=== PATIENT | male | born 1950 | race African-American/Black ===

== ENCOUNTER 2016-03-30 08:21 | Emergency (ER) | payer MEDICARE, OTHER ==
[2016-03-30 08:58] LABS: ABSOLUTE EOSINOPHILS # (AUTO) 0.2 10^3/uL (0.0-0.6); ABSOLUTE LYMPHOCYTES (AUTO) 1.8 10^3/uL (0.5-4.7); ABSOLUTE MONOCYTES (AUTO) 0.6 10^3/uL (0.1-1.4); ABSOLUTE NEUT (AUTO) 3.6 10^3/uL (1.7-8.2); BASOPHILS % (AUTO) 0.6 % (0-2); HEMOGLOBIN 13.9 g/dL (13.5-17.0); HGB HCT DIFFERENCE -1.3; LYMPHOCYTES % (AUTO) 28.4 % (13-45); MEAN CORPUSCULAR HEMOGLOBIN 26.1 pg (27.0-33.4); MEAN CORPUSCULAR HGB CONC 32.3 g/dL (32.0-36.0); MEAN CORPUSCULAR VOLUME 81 fl (80-97); MONOCYTES % (AUTO) 10.1 % (3-13); RED BLOOD COUNT 5.33 10^6/uL (4.35-5.55); RED CELL DISTRIBUTION WIDTH 14.7 % (11.5-14.0); SEGMENTED NEUTROPHILS % (AUTO) 57.9 % (42-78); WHITE BLOOD COUNT 6.2 10^3/uL (4.0-10.5)
[2016-03-30 09:15] LABS: ALANINE AMINOTRANSFERASE 25 U/L (21-72); ALBUMIN 3.6 g/dL (3.5-5.0); ALKALINE PHOSPHATASE 84 U/L (38-126); ANION GAP 11 (5-19); ASPARTATE AMINO TRANSFERASE 20 U/L (17-59); BILIRUBIN,TOTAL 0.8 mg/dL (0.2-1.3); BLOOD UREA NITROGEN 11 mg/dL (7-20); CALCIUM 9.2 mg/dL (8.4-10.2); CARBON DIOXIDE 24 mmol/L (22-30); CHLORIDE 109 mmol/L (98-107); CREATINE KINASE 184 U/L (55-170); GLUCOSE 106 mg/dL (75-110); MAGNESIUM 1.9 mg/dL (1.6-2.3); POTASSIUM 4.3 mmol/L (3.6-5.0); SODIUM 143.5 mmol/L (137-145); TOTAL PROTEIN 6.6 g/dL (6.3-8.2)
[2016-03-30] MEDS ORDERED: PREDNISONE 20 MG TABLET PO ONE (09:18)
--- NOTE | 2016-03-30 09:18 | ER Document Report ---
ED General - General Mode of Arrival: Medic Information source: Patient, Relative - HPI Patient complains to provider of: dizziness Onset: This morning Associated symptoms: Other - See above <GENARO WHEELER - Last Filed: 03/30/16 09:25> <BENJY GAN - Last Filed: 03/30/16 11:02> - General Chief Complaint: Dizziness Stated Complaint: DIZZINESS Notes: Patient is a 65 year old male, with a past medical history including hypercholesterolemia and multiple CVAs, who presents to the emergency department with his complaining of dizziness. Per , patient has always become dizzy and starts grunting, like he did this morning, before he has a stroke and has never been dizzy without a stroke following. Patient reports he has had 8 strokes in the past, the most recent was 4-5 months ago and was treated in [place]. 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 According to the source of the clots has not been found. Patient reports he has only experienced left sided weakness after the strokes, he has been to stroke rehab and told to walk with a cane. Patient denies any new speech or motor deficits or weakness. Patient reports he has a history of gout and complains of left foot pain. (GENARO WHEELER) - Related Data Home Medications: Current Home Medications Atorvastatin Calcium 1 tab PO DAILY 03/30/16 [History] Atorvastatin Calcium [Lipitor 10 mg Tablet] 1 tab PO DAILY 03/30/16 [History] Clopidogrel Bisulfate [Clopidogrel] 1 tab PO DAILY 03/30/16 [History] Donepezil HCl 1 tab PO DAILY 03/30/16 [History] Past Medical History - General Information source: Patient, Relative - Social History Smoking Status: Former Smoker - 20 years Family History: Reviewed & Not Pertinent - Past Medical History Cardiac Medical History: Reports: Hx Hypercholesterolemia Neurological Medical History: Reports: Hx Cerebrovascular Accident Musculoskeltal Medical History: Reports Hx Gout Traumatic Medical History: Reports: Other - 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 <GENARO WHEELER - Last Filed: 03/30/16 09:25> Review of Systems - Review of Systems Constitutional: denies: Weakness EENT: No symptoms reported Cardiovascular: See HPI, Dizziness Respiratory: No symptoms reported Gastrointestinal: No symptoms reported Genitourinary: No symptoms reported Male Genitourinary: No symptoms reported Musculoskeletal: See HPI, Gout Skin: No symptoms reported Hematologic/Lymphatic: No symptoms reported Neurological/Psychological: denies: Speech impairment -: Yes All other systems reviewed and negative <GENARO WHEELER - Last Filed: 03/30/16 09:25> Physical Exam - Vital signs Interpretation: Normal - General General appearance: Appears well, Alert - HEENT Head: Other - Missing left eye from past trauma - Respiratory Respiratory status: No respiratory distress - Cardiovascular Rhythm: Regular Heart sounds: Normal auscultation Murmur: No - Abdominal Inspection: Normal Distension: No distension Bowel sounds: Normal Tenderness: Nontender Organomegaly: No organomegaly - Extremities General upper extremity: Normal inspection Foot: Tender - Tenderness to palpation of 1st left MTP joint - Neurological Neuro grossly intact: Yes Cognition: Normal Orientation: AAOx4 Bettina Coma Scale Eye Opening: Spontaneous Bettina Coma Scale Verbal: Oriented Nikolski Coma Scale Motor: Obeys Commands Nikolski Coma Scale Total: 15 Speech: Normal Cranial nerves: Normal - Psychological Associated symptoms: Normal affect, Normal mood - Skin Skin Temperature: Warm Skin Moisture: Dry Skin Color: Normal <GENARO WHEELER - Last Filed: 03/30/16 09:25> Course - Laboratory Result Diagrams: 03/30/16 08:30 03/30/16 08:30 <GENARO WHEELER - Last Filed: 03/30/16 09:25> - Laboratory Result Diagrams: 03/30/16 08:30 03/30/16 08:30 - Diagnostic Test Radiology reviewed: Image reviewed, Reports reviewed - CT of the head shows old occipital infarcts with chronic atrophy and microvascular ischemia. There are no acute changes. Chest x-ray is unremarkable. - EKG Interpretation by Me EKG shows normal: Sinus rhythm, Sidney, Intervals, QRS Complexes. abnormal: ST-T Waves - Borderline inferior T abnormalities Rate: Normal - 58 Rhythm: NSR When compared to previous EKG there are: Previous EKG unavailable <BENJY GAN - Last Filed: 03/30/16 11:02> - Re-evaluation Re-evalutation: 03/30/16 10:58 This 65-year-old male patient brought to emergency room by his spouse with symptoms of grunting and eyes rolling back with dizziness. She reports she has had 8 strokes in the past and they always start like this. She further stated she he never has these symptoms when he doesn't have a stroke. At this time the patient is completely alert oriented and neurologically asymptomatic. His only complaint is pain in the left first toe and he does have a history of gout. He takes Plavix on a daily basis to prevent strokes. He had left-sided deficits in the past but they have pretty much cleared up. He is not a TPA candidate, as his symptoms have completely cleared, and he takes Plavix on a daily basis. 03/30/16 11:01 The spouse reports when they lived in [place] a few years ago they got the care from [facility], and plan to reestablish with the [place] office of [facility]. (BENJY GAN) - Vital Signs Vital signs: Temp Pulse Resp BP Pulse Ox 97.6 F 59 L 26 H 122/63 97 03/30/16 08:35 03/30/16 08:35 03/30/16 08:35 03/30/16 08:35 03/30/16 08:35 (GENARO WHEELER) (BENJY GAN) - Laboratory Laboratory results interpreted by nh: 03/30/16 03/30/16 08:30 08:30 MCH 26.1 L RDW 14.7 H Chloride 109 H Creatine Kinase 184 H (GENARO WHEELER) (BENJY GAN) Discharge <GENARO WHEELER - Last Filed: 03/30/16 09:25> <BENJY GAN - Last Filed: 03/30/16 11:02> - Discharge Clinical Impression: TIA on medication Gout attack Qualifiers: Gout site: toe Gout etiology: unspecified cause Laterality: left Qualified Code (s): M10.9 - Gout, unspecified Condition: Stable Disposition: HOME, SELF-CARE Additional Instructions: Your pre-stroke like symptoms earlier today may have been a transient ischemic attack. You are already on maximal medical therapy with the Plavix. Your left first toe pain and swelling is due to gout. Start the prednisone as prescribed tomorrow. Elevate the foot and limit walking as much as possible. Follow-up with [facility] to establish as a new patient. RETURN TO THE EMERGENCY ROOM IF ANY NEW OR WORSENING SYMPTOMS. Prescriptions: Prednisone [Deltasone 10 mg Tablet] 10 mg PO ASDIR PRN #21 tablet PRN Reason: Scribe Attestation: 03/30/16 11:02 I personally performed the services described in the documentation, reviewed and edited the documentation which was dictated to the scribe in my presence, and it accurately records my words and actions. (BENJY GAN) Scribe Documentation - Scribe Written by Tonya:: tonya Vargas, 03/30/16, 0936 acting as scribe for :: Miguelangel <GENARO WHEELER - Last Filed: 03/30/16 09:25>
[2016-03-30 09:21] LABS: ADD ON TESTING BLD IN LAB ACKNOWLEDGE
[2016-03-30 09:27] LABS: CREATINE KINASE MB 0.89 ng/mL (<4.55)
[2016-03-30 09:29] LABS: TROPONIN I < 0.012 ng/mL
[2016-03-30 09:57] LABS: URIC ACID 7.7 mg/dL (3.5-8.5)
--- NOTE | 2016-03-30 10:00 | EKG REPORT ---
SEVERITY:- BORDERLINE ECG - SINUS RHYTHM BORDERLINE T ABNORMALITIES, INFERIOR LEADS : Confirmed by: Cecil Barajas MD 30-Mar-2016 10:00:09
[2016-03-30 11:04] VITALS: BP 133/76
== END 2016-03-30 11:10 | disposition home or self-care (01) ==
LOC: ER 08:21
DX: G45.9 Transient cerebral ischemic attack, unspecified (principal); R42 Dizziness and giddiness; M10.9 Gout, unspecified; M79.672 Pain in left foot; Z79.02 Long term (current) use of antithrombotics/antiplatelets; Z87.891 Personal history of nicotine dependence; Z86.73 Personal history of transient ischemic attack (TIA), and cerebral infarction without residual deficits
CPT/HCPCS: 93005; 99285; 36415; 82553; 82550; 83735; 84550; 85025; 80053; 84484; 71010; 70450; 93010; A9270; J7512

== ENCOUNTER 2016-06-21 02:05 | Inpatient (IN) | payer MEDICARE ==
[2016-06-21] MEDS ORDERED: GLUCAGON,HUMAN RECOMB 1 MG INJ IV PRN ×2 (04:08→05:56)
[2016-06-21] MEDS ORDERED: MAG HYDROX/AL HYDROX/SIMETH SUSP 30 ML UDCUP PO ONE (04:08)
[2016-06-21] MEDS ORDERED: LIDOCAINE 2% VISCOUS SOLN 20 ML UDCUP PO ONE (04:08)
[2016-06-21] MEDS ORDERED: METOCLOPRAMIDE HCL ORAL SOLN 10 MG/10 ML UDCUP PO ONE (04:08)
--- NOTE | 2016-06-21 05:37 | ER Document Report ---
ED General - General Chief Complaint: Sore Throat Stated Complaint: THROAT PAIN Notes: Patient is a 65-year-old male who presents with feelings of something being stuck in his throat. Patient states this started acutely after he swallowed shrimp and he has been unable to swallow anything else since that time and feels like his voice is gone. Patient has a history of multiple prior strokes and does have some mild dysphagia at baseline. No history of similar symptoms in the past. He has not seen his primary doctor regarding today's concerns. Nothing improves or worsens his symptoms. History is otherwise limited secondary to patient's inability to speak well. - Related Data Allergies/Adverse Reactions: Penicillins Allergy (Verified 03/30/16 11:08) Past Medical History - General Information source: Patient - Social History Smoking Status: Former Smoker Frequency of alcohol use: None Drug Abuse: None Lives with: Spouse/Significant other Family History: Reviewed & Not Pertinent - Past Medical History Cardiac Medical History: Reports: Hx Hypercholesterolemia Neurological Medical History: Reports: Hx Cerebrovascular Accident Musculoskeltal Medical History: Reports Hx Gout Review of Systems - Review of Systems Notes: Constitutional: Negative for fever. HENT: Positive for a sensation of foreign bodies in the throat Eyes: Negative for visual changes. Cardiovascular: Negative for chest pain. Respiratory: Negative for shortness of breath. Gastrointestinal: Negative for abdominal pain, vomiting or diarrhea. Genitourinary: Negative for dysuria. Musculoskeletal: Negative for back pain. Skin: Negative for rash. Neurological: Negative for headaches 10 point ROS negative except as marked above and in HPI. Physical Exam - Vital signs Vitals: Temp Resp BP Pulse Ox 98.2 F 19 134/72 H 96 06/21/16 02:16 06/21/16 02:16 06/21/16 02:16 06/21/16 02:16 Interpretation: Normal Notes: PHYSICAL EXAMINATION: GENERAL: Appears uncomfortable but in no distress HEAD: Atraumatic, normocephalic. EYES: Pupils equal round and reactive to light, extraocular movements intact, sclera anicteric, conjunctiva are normal. ENT: nares patent, oropharynx clear without exudates. No stridor. Moist mucous membranes. NECK: Normal range of motion, supple without lymphadenopathy LUNGS: Breath sounds clear to auscultation bilaterally and equal. No wheezes rales or rhonchi. HEART: Regular rate and rhythm without murmurs ABDOMEN: Soft, nontender, normoactive bowel sounds. No guarding, no rebound. No masses appreciated. EXTREMITIES: no pitting or edema. No cyanosis. NEUROLOGICAL: Chronic left-sided facial droop. No focal neurological deficits. Moves all extremities spontaneously and on command. Patient is mildly dysarthric but is able to vocalize his name. PSYCH: Normal mood, normal affect. SKIN: Warm, Dry, normal turgor, no rashes or lesions noted. Course - Re-evaluation Re-evalutation: 06/21/16 05:46 Patient presents with a sensation of a foreign body in his throat. States this started immediately after swallowing a piece of shrimp and has persistent since that time. States that he has been unable to swallow. Glucagon 1 g IV 2 was tried without success although it did make the patient vomit. He has not been able to tolerate oral intake. He does not have stridor or any evidence of respiratory distress although he is having some difficulty phonating. I discussed with Dr. Francis for endoscopy and he will assess the patient. Patient has no new focal neurologic deficits. He is able to state his name. He has a clear understanding of language. Do not believe this is a new or acute stroke. Patient likely has some dysphasia baseline given his prior strokes. - Vital Signs Vital signs: Temp Pulse Resp BP Pulse Ox 98.2 F 19 134/72 H 96 06/21/16 02:16 06/21/16 02:16 06/21/16 02:16 06/21/16 02:16 - Diagnostic Test Radiology reviewed: Image reviewed, Reports reviewed Radiology results interpreted by me: 06/21/16 05:47 Chest x-ray and KUB: Unremarkable without evidence of infiltrate or aspiration Discharge - Discharge Clinical Impression: Foreign body in esophagus Qualifiers: Encounter type: initial encounter Qualified Code(s): T18.108A - Unspecified foreign body in esophagus causing other injury, initial encounter
[2016-06-21] MEDS ORDERED: ONDANSETRON HCL INJ/PF 4 MG/2 ML SDV ONE (07:58)
[2016-06-21] MEDS ORDERED: FENTANYL CITRATE INJ/PF 100 MCG/2 ML AMPUL ONE (07:59)
[2016-06-21] MEDS ORDERED: NALOXONE HCL INJ/PF 0.4 MG/1 ML SDV ONE (07:59)
[2016-06-21] MEDS ORDERED: GLYCOPYRROLATE INJ 0.4 MG/2 ML VIAL ONE (07:59)
[2016-06-21] MEDS ORDERED: FLUMAZENIL INJ 0.5 MG/5 ML VIAL IV ONE (08:00)
[2016-06-21] MEDS ORDERED: GLUCAGON,HUMAN RECOMB 1 MG INJ ONE (08:00)
[2016-06-21] MEDS ORDERED: EPINEPHRINE INJ 1 MG/10 ML DISP.SYRIN ONE (08:00)
[2016-06-21] MEDS: MIDAZOLAM 2 MG/2 ML INJ ONE ×2 (08:21→08:24)
--- NOTE | 2016-06-21 08:55 | ER Document Report ---
Doctor's Note Notes: 06/21/16 08:55 This 65-year-old male patient was brought to the emergency room by EMS earlier this morning for difficulty swallowing, pain in the throat, and difficulty speaking. On his initial workup he was thought to have gotten a piece of shrimp lodged in the esophagus. Patient was signed out to me waiting for Dr. Francis to come do an endoscopy to retrieve the foreign body. Endoscopy did not show any abnormality. The patient did continue to have the same symptoms. The patient's history was clarified in talking with the : She reports that she fed him shrimp about 6 PM last night, she went to [place] and returned home about 10 PM and he was sleeping. At about 11 PM he woke up and was complaining of difficulty breathing, difficulty swallowing and pain in his throat. She reports his behavior at that time was similar to prior episodes of CVA. She reports she normally does not have problems eating or drinking. He does have a right-sided weakness due to the old strokes. She reports 3 days ago the 2 of them were at [employer] riding exercise bikes and walking. An MRI of the brain is ordered to workup the patient for possible CVA. 06/21/16 10:37 MRI shows the patient has a small acute nonhemorrhagic left posterior frontal cortical infarct. He is followed by primary care physician at [facility], he does take Plavix. The patient is not a TPA candidate, he has had multiple prior strokes, and his symptoms started in his sleep sometime before 11 PM last night.
[2016-06-21 09:39] LABS: ABSOLUTE EOSINOPHILS # (AUTO) 0.1 10^3/uL (0.0-0.6); ABSOLUTE LYMPHOCYTES (AUTO) 1.8 10^3/uL (0.5-4.7); ABSOLUTE MONOCYTES (AUTO) 0.6 10^3/uL (0.1-1.4); ABSOLUTE NEUT (AUTO) 3.4 10^3/uL (1.7-8.2); BASOPHILS % (AUTO) 0.6 % (0-2); EOSINOPHILS % (AUTO) 2.3 % (0-6); HEMATOCRIT 40.4 % (37.9-51.0); HEMOGLOBIN 13.9 g/dL (13.5-17.0); HGB HCT DIFFERENCE 1.3; MEAN CORPUSCULAR HEMOGLOBIN 26.7 pg (27.0-33.4); MEAN CORPUSCULAR HGB CONC 34.5 g/dL (32.0-36.0); MEAN CORPUSCULAR VOLUME 78 fl (80-97); RED BLOOD COUNT 5.21 10^6/uL (4.35-5.55); RED CELL DISTRIBUTION WIDTH 15.5 % (11.5-14.0); SEGMENTED NEUTROPHILS % (AUTO) 57.1 % (42-78); WHITE BLOOD COUNT 5.9 10^3/uL (4.0-10.5)
[2016-06-21 09:41] LABS: ALANINE AMINOTRANSFERASE 27 U/L (21-72); ALKALINE PHOSPHATASE 78 U/L (38-126); ANION GAP 13 (5-19); ASPARTATE AMINO TRANSFERASE 16 U/L (17-59); BILIRUBIN,DIRECT 0.2 mg/dL (0.0-0.4); BILIRUBIN,TOTAL 0.9 mg/dL (0.2-1.3); BLOOD UREA NITROGEN 14 mg/dL (7-20); CALCIUM 9.4 mg/dL (8.4-10.2); CARBON DIOXIDE 22 mmol/L (22-30); CHLORIDE 110 mmol/L (98-107); CREATINE KINASE 96 U/L (55-170); CREATININE RESULT 0.97 mg/dL (0.52-1.25); GLUCOSE 92 mg/dL (75-110); POTASSIUM 4.3 mmol/L (3.6-5.0); SODIUM 144.5 mmol/L (137-145); TOTAL PROTEIN 6.9 g/dL (6.3-8.2)
[2016-06-21 10:01] LABS: CREATINE KINASE MB 0.51 ng/mL (<4.55); TROPONIN I < 0.012 ng/mL
[2016-06-21] MEDS ORDERED: ASPIRIN 300 MG SUPP, RECTAL PR ONE (10:37)
[2016-06-21] MEDS ORDERED: ONDANSETRON HCL INJ/PF 4 MG/2 ML SDV IV PRN (10:40)
[2016-06-21 10:44] LABS: APPEARANCE,URINE SLIGHTLY-CLOUDY; BILIRUBIN,URINE NEGATIVE (NEGATIVE); GLUCOSE, URINE NEGATIVE (NEGATIVE); KETONES,URINE NEGATIVE (NEGATIVE); LEUKOCYTE ESTERASE,URINE TRACE (NEGATIVE); NITRITE,URINE NEGATIVE (NEGATIVE); PROTEIN,URINE NEGATIVE (NEGATIVE); URINE SPECIFIC GRAVITY 1.028; UROBILINOGEN,URINE NEGATIVE mg/dL (<2.0)
[2016-06-21 11:07] LABS: PROTHROMBIN TIME 12.9 SEC (11.4-15.4)
--- NOTE | 2016-06-21 11:29 | Operative Report ---
Operative Report DATE OF SURGERY: 06/21/16 PREOPERATIVE DIAGNOSIS: 1. Dysphasia; rule out foreign body. 2. History of strokes POSTOPERATIVE DIAGNOSIS: Same; no evidence of retained foreign body in the esophagus. Mild duodenitis OPERATION: Esophagogastroduodenoscopy SURGEON: FAMILIA BLANCO ANESTHESIA: Moderate Sedation TISSUE REMOVED OR ALTERED: None COMPLICATIONS: None ESTIMATED BLOOD LOSS: none INTRAOPERATIVE FINDINGS: See below PROCEDURE: Patient was taken to the minor procedure room placed in the semirecumbent position monitoring devices. Oral mouthpiece inserted Timeout was conducted. Appropriate level of sedation achieved. The flexible adult upper endoscope was advanced through the hypopharynx down the esophagus into the stomach and into the first and second portions of the duodenum. The procedure was well- tolerated by the patient. Visualization of all lumens appreciated. There was no evidence of retained foreign body, undigested food, bile. There was mild duodenitis. No biopsy taken. Scope retroflexed in the stomach; no evidence of significant hiatal hernia. The Z line was at approximately 38 cm from the incisor. The esophagus was carefully inspected and again no pathology seen. There was no evidence of stricture tumor or web. Postoperative procedure well. Scope extracted from his oropharynx. Remaining instructions provided by nursing staff to patient and patient's .
[2016-06-21] MEDS: NORMAL SALINE 1000 ML 1,000 ML IV PRN ×2 (11:34→23:45)
[2016-06-21] MEDS ORDERED: BENZOCAINE/MENTHOL SORE THROAT LOZENGE BUCCAL PRN (13:17)
--- NOTE | 2016-06-21 14:18 | PDOC H&P ---
History of Present Illness Admission Date/PCP: 06/21/16 10:41 FANTA MURPHY CNM Patient complains of: Difficulty swallowing, throat pain and speaking History of Present Illness: AMBER STYLES is a 65 year old male who was brought to [facility]'s emergency room earlier this morning. He was having difficulty swallowing, pain in his throat and difficulty speaking. He has a past medical history of several prior CVAs, with mild left-sided weakness. He has no previous history of dysphasia or dysphagia. He was initially thought to have an impacted food bolus by the initial assessment of the first emergency room physician who saw him. Dr. Francis, performed an EGD, and found no impacted food bolus. Dr. Means, the day shift emergency physician, spoke to patient's regarding findings and his history. He then obtained MRI which showed a new small left posterior frontal cortical infarct. Patient is also having some dysphasia as well which is new for him. Past Medical History Cardiac Medical History: Reports: Hyperlipidema Pulmonary Medical History: Reports: None EENT Medical History: Reports: Cataracts Neurological Medical History: Reports: Ischemic CVA - 4 prior CVAs with mild left side weakness, no dysphasia, Seizures Endocrine Medical History: Reports: None Renal/ Medical History: Reports: None Malignancy Medical History: Reports: None GI Medical History: Reports: None Musculoskeltal Medical History: Reports: Gout Skin Medical History: Reports: None Psychiatric Medical History: Reports: None Traumatic Medical History: Reports: None Past Surgical History Past Surgical History: Reports: Other - cardiac event recorder insertion Social History Information Source: Patient, Relative Lives with: Spouse/Significant other Smoking Status: Former Smoker Number of Years Smokin Last Time Smoked: 15 years gaby Frequency of Alcohol Use: Rare Hx Recreational Drug Use: No Hx Prescription Drug Abuse: No - Advance Directive Resuscitation Status: Full Code Surrogate healthcare decision maker:: Tiffanie Family History Family History: CAD, Hypertension Parental Family History Reviewed: Yes Children Family History Reviewed: Yes Sibling(s) Family History Reviewed.: Yes Medication/Allergy Allergies/Adverse Reactions: Penicillins Allergy (Verified 03/30/16 11:08) Review of Systems Constitutional: ABSENT: chills, fever(s), headache(s), weight gain, weight loss Eyes: ABSENT: visual disturbances Ears: ABSENT: hearing changes Nose, Mouth, and Throat: PRESENT: sore throat Cardiovascular: ABSENT: chest pain, dyspnea on exertion, edema, orthropnea, palpitations Respiratory: ABSENT: cough, hemoptysis Gastrointestinal: PRESENT: dysphagia. ABSENT: abdominal pain, constipation, diarrhea, hematemesis, hematochezia, nausea, vomiting Genitourinary: PRESENT: as per HPI Musculoskeletal: ABSENT: joint swelling Integumentary: ABSENT: rash, wounds Neurological: PRESENT: abnormal speech, memory loss Psychiatric: ABSENT: anxiety, depression, homidical ideation, suicidal ideation Endocrine: ABSENT: cold intolerance, heat intolerance, polydipsia, polyuria Hematologic/Lymphatic: ABSENT: easy bleeding, easy bruising Physical Exam Vital Signs: Temp Pulse Resp BP Pulse Ox 97.9 F 67 22 H 136/74 H 97 06/21/16 12:15 06/21/16 10:40 06/21/16 11:01 06/21/16 11:01 06/21/16 11:01 General appearance: PRESENT: no acute distress, well-developed, well-nourished Head exam: PRESENT: atraumatic, normocephalic Eye exam: PRESENT: conjunctiva pink, EOMI, PERRLA. ABSENT: scleral icterus Ear exam: PRESENT: normal external ear exam Mouth exam: PRESENT: moist, tongue midline Neck exam: ABSENT: carotid bruit, JVD, lymphadenopathy, thyromegaly Respiratory exam: PRESENT: clear to auscultation marifer. ABSENT: rales, rhonchi, wheezes Cardiovascular exam: PRESENT: RRR. ABSENT: diastolic murmur, rubs, systolic murmur Pulses: PRESENT: normal dorsalis pedis pul Vascular exam: PRESENT: normal capillary refill GI/Abdominal exam: PRESENT: normal bowel sounds, soft. ABSENT: distended, guarding, mass, organolmegaly, rebound, tenderness Rectal exam: PRESENT: deferred Extremities exam: PRESENT: full ROM Musculoskeletal exam: PRESENT: other - mild residual left sided weakness from old CVA Neurological exam: PRESENT: alert, awake, oriented to person, oriented to place , oriented to time, oriented to situation, other - dyphasic with continued dysphagia. ABSENT: motor sensory deficit Psychiatric exam: PRESENT: appropriate affect, normal mood. ABSENT: homicidal ideation, suicidal ideation Skin exam: PRESENT: dry, intact, warm. ABSENT: cyanosis, rash Results Impressions: Chest X-Ray 06/21/16 00:00 IMPRESSION: NO ACUTE RADIOGRAPHIC FINDING IN THE CHEST. KUB X-Ray 06/21/16 00:00 IMPRESSION: NO RADIOGRAPHIC EVIDENCE FOR ACUTE ABDOMINAL DISEASE. Head MRI 06/21/16 08:53 IMPRESSION: Small acute nonhemorrhagic left posterior frontal cortical infarct Extensive white matter disease and multiple old infarcts as above Assessment & Plan - Diagnosis (1) Acute CVA (cerebrovascular accident) Is this a current diagnosis for this admission?: YesPlan: Patient was able to pass bedside swallow with nursing. Will start soft cardiac diet with thickened liquids until he can be followed by speech on Thursday. Physical and occupational therapy consult. Will continue aspirin, plavix and lipitor (2) Dysphagia Qualifiers: Dysphagia type: unspecified Qualified Code(s): R13.10 - Dysphagia, unspecified Is this a current diagnosis for this admission?: YesPlan: Will have speech therapy consult. Aspiration precautions. EGD showed normal esophagus (3) Old cerebrovascular accident (CVA) without late effect Is this a current diagnosis for this admission?: YesPlan: Patient with multiple prior cva's with left sided weakness. No prior history of dysphagia or dysphasia (4) Essential hypertension Is this a current diagnosis for this admission?: YesPlan: Continue current medications, normotensive pm current medications (5) Dyslipidemia Is this a current diagnosis for this admission?: YesPlan: Continue statin dose. Check fasting lipids in the am (6) Gout Qualifiers: Gout site: multiple sites Gout etiology: idiopathic Is this a current diagnosis for this admission?: NoPlan: Patient with history of gout will continue his allopurinol - Time Time Spent: 50 to 70 Minutes Critical Time spent with patient: 25-34 minutes Medications reviewed and adjusted accordingly: Yes
[2016-06-21] MEDS: HEPARIN SOD (PORCINE) 5,000 UNIT/ML 1 ML SYRINGE SUBCUT SCH ×2 (17:39→22:04)
[2016-06-21] MEDS: FAMOTIDINE INJ/PF 20 MG/2 ML SDV IV SCH (22:04)
[2016-06-22 05:04] LABS: ABSOLUTE EOSINOPHILS # (AUTO) 0.2 10^3/uL (0.0-0.6); ABSOLUTE LYMPHOCYTES (AUTO) 2.2 10^3/uL (0.5-4.7); ABSOLUTE MONOCYTES (AUTO) 0.7 10^3/uL (0.1-1.4); ABSOLUTE NEUT (AUTO) 3.1 10^3/uL (1.7-8.2); BASOPHILS % (AUTO) 0.4 % (0-2); EOSINOPHILS % (AUTO) 3.6 % (0-6); HEMATOCRIT 40.3 % (37.9-51.0); HEMOGLOBIN 13.9 g/dL (13.5-17.0); HGB HCT DIFFERENCE 1.4; LYMPHOCYTES % (AUTO) 34.7 % (13-45); MEAN CORPUSCULAR HEMOGLOBIN 26.7 pg (27.0-33.4); MEAN CORPUSCULAR HGB CONC 34.6 g/dL (32.0-36.0); MEAN CORPUSCULAR VOLUME 77 fl (80-97); MONOCYTES % (AUTO) 11.4 % (3-13); RED BLOOD COUNT 5.23 10^6/uL (4.35-5.55); RED CELL DISTRIBUTION WIDTH 15.2 % (11.5-14.0); SEGMENTED NEUTROPHILS % (AUTO) 49.9 % (42-78); WHITE BLOOD COUNT 6.2 10^3/uL (4.0-10.5)
[2016-06-22 05:26] LABS: ALANINE AMINOTRANSFERASE 27 U/L (21-72); ALBUMIN 3.7 g/dL (3.5-5.0); ALKALINE PHOSPHATASE 72 U/L (38-126); ANION GAP 12 (5-19); ASPARTATE AMINO TRANSFERASE 15 U/L (17-59); BILIRUBIN,DIRECT 0.3 mg/dL (0.0-0.4); BILIRUBIN,TOTAL 1.5 mg/dL (0.2-1.3); BLOOD UREA NITROGEN 14 mg/dL (7-20); CALCIUM 9.2 mg/dL (8.4-10.2); CARBON DIOXIDE 21 mmol/L (22-30); CHLORIDE 111 mmol/L (98-107); CHOLESTEROL 221.67 mg/dL (0-200); CREATININE RESULT 0.99 mg/dL (0.52-1.25); Direct HDL 37 mg/dL (>40); GLUCOSE 93 mg/dL (75-110); POTASSIUM 3.9 mmol/L (3.6-5.0); SODIUM 144.3 mmol/L (137-145); TOTAL PROTEIN 6.7 g/dL (6.3-8.2); TRIGLYCERIDES 113 mg/dL (<150)
[2016-06-22] MEDS: HEPARIN SOD (PORCINE) 5,000 UNIT/ML 1 ML SYRINGE SUBCUT SCH ×3 (05:37→21:38)
[2016-06-22 05:38] LABS: DIRECT LDL 148 mg/dL (<100)
[2016-06-22] MEDS: FAMOTIDINE INJ/PF 20 MG/2 ML SDV IV SCH ×2 (09:30→21:38)
[2016-06-22] MEDS: ASPIRIN 81 MG TABLET, ENT COATED PO SCH (09:31)
[2016-06-22] MEDS: ATORVASTATIN CALCIUM 10 MG TABLET PO SCH (09:31)
[2016-06-22] MEDS: ATORVASTATIN CALCIUM 40 MG TABLET PO SCH (09:31)
[2016-06-22] MEDS: TAMSULOSIN HCL 0.4 MG CAP.SR.24H PO SCH (09:31)
[2016-06-22] MEDS: CLOPIDOGREL BISULFATE 75 MG TABLET PO SCH (09:31)
[2016-06-22] MEDS ORDERED: CLOPIDOGREL BISULFATE 75 MG TABLET PO SCH (10:00)
[2016-06-22] MEDS ORDERED: ASPIRIN 81 MG TABLET, CHEWABLE PO SCH (10:00)
[2016-06-22] MEDS ORDERED: DONEPEZIL HCL 5 MG TABLET PO SCH ×2 (10:00)
[2016-06-22] MEDS ORDERED: ASPIRIN 300 MG SUPP, RECTAL PR SCH (10:00)
--- NOTE | 2016-06-22 11:04 | PDOC PROGRESS REPORT ---
Subjective Progress Note for:: 06/22/16 Subjective:: Patient seen on morning rounds. He is presently resting in bed. His is at bedside. He apparently did well with his swallow eval was able to tolerate soft foods and thickened liquids, but then began having more difficulty swallowing yesterday evening again. He was therefore made nothing by mouth. He continues to have dysarthria and some dysphasia. He has no new extremity weakness. He ordered a modified barium swallow and speech therapy evaluation. Also have physical therapy and occupational therapy evaluations today. He denies any pain. He denies any shortness of breath, cough or dyspnea. He denies any chest pain, palpitations or dizziness. Rest of review of systems are all negative. Physical Exam Vital Signs: Temp Pulse Resp BP Pulse Ox 97.4 F 66 16 136/77 H 98 06/22/16 07:25 06/22/16 08:00 06/22/16 08:00 06/22/16 08:00 06/22/16 08:00 Intake & Output 06/21/16 06/22/16 06/23/16 06:59 06:59 06:59 Intake Total 1312 Output Total 150 Balance 1162 Weight 95.3 kg General appearance: PRESENT: no acute distress, well-developed, well-nourished Head exam: PRESENT: atraumatic, normocephalic Eye exam: PRESENT: conjunctiva pink, EOMI, PERRLA. ABSENT: scleral icterus Ear exam: PRESENT: normal external ear exam Mouth exam: PRESENT: moist, tongue midline Neck exam: ABSENT: carotid bruit, JVD, lymphadenopathy, thyromegaly Respiratory exam: PRESENT: clear to auscultation marifer. ABSENT: rales, rhonchi, wheezes Cardiovascular exam: PRESENT: RRR. ABSENT: diastolic murmur, rubs, systolic murmur Pulses: PRESENT: normal dorsalis pedis pul GI/Abdominal exam: PRESENT: normal bowel sounds, soft. ABSENT: distended, guarding, mass, organolmegaly, rebound, tenderness Musculoskeletal exam: PRESENT: full ROM Neurological exam: PRESENT: alert, awake, oriented to person, oriented to place - Right sided facial droop. Left sided extremity weakness from an old CVA 4/5 muscle strenght, oriented to time, oriented to situation, abnormal gait, CN II- XII grossly intact, other - Right sided. ABSENT: motor sensory deficit Psychiatric exam: PRESENT: appropriate affect, normal mood. ABSENT: homicidal ideation, suicidal ideation Skin exam: PRESENT: abrasion Results Laboratory Results: 06/22/16 04:47 06/22/16 04:47 06/22/16 06/22/16 04:47 04:47 WBC 6.2 RBC 5.23 Hgb 13.9 Hct 40.3 MCV 77 L MCH 26.7 L MCHC 34.6 RDW 15.2 H Plt Count 156 Seg Neutrophils % 49.9 Lymphocytes % 34.7 Monocytes % 11.4 Eosinophils % 3.6 Basophils % 0.4 Absolute Neutrophils 3.1 Absolute Lymphocytes 2.2 Absolute Monocytes 0.7 Absolute Eosinophils 0.2 Absolute Basophils 0.0 Sodium 144.3 Potassium 3.9 Chloride 111 H Carbon Dioxide 21 L Anion Gap 12 BUN 14 Creatinine 0.99 Est GFR ( Amer) > 60 Est GFR (Non-Af Amer) > 60 Glucose 93 Calcium 9.2 Total Bilirubin 1.5 H AST 15 L ALT 27 Alkaline Phosphatase 72 Total Protein 6.7 Albumin 3.7 Triglycerides 113 Cholesterol 221.67 H LDL Cholesterol Direct 148 H VLDL Cholesterol 23.0 HDL Cholesterol 37 L Impressions: Chest X-Ray 06/21/16 00:00 IMPRESSION: NO ACUTE RADIOGRAPHIC FINDING IN THE CHEST. KUB X-Ray 06/21/16 00:00 IMPRESSION: NO RADIOGRAPHIC EVIDENCE FOR ACUTE ABDOMINAL DISEASE. Head MRI 06/21/16 08:53 IMPRESSION: Small acute nonhemorrhagic left posterior frontal cortical infarct Extensive white matter disease and multiple old infarcts as above Assessment & Plan - Diagnosis (1) Acute CVA (cerebrovascular accident) Is this a current diagnosis for this admission?: YesPlan: Patient difficulty swallowing last evening. Nursing venous where we made him nothing by mouth that time. He'll proceed with modified barium swallow morning and speech evaluation prior to initiating a type diet. Physical and occupational therapy consult. Will continue aspirin, plavix and lipitor (2) Dysphagia Qualifiers: Dysphagia type: unspecified Qualified Code(s): R13.10 - Dysphagia, unspecified Is this a current diagnosis for this admission?: YesPlan: Will have speech therapy consult. Aspiration precautions. EGD showed normal esophagus. We will order modified barium swallow and speech therapy evaluation. (3) Old cerebrovascular accident (CVA) without late effect Is this a current diagnosis for this admission?: YesPlan: Patient with multiple prior cva's with left sided weakness. No prior history of dysphagia or dysphasia (4) Essential hypertension Is this a current diagnosis for this admission?: YesPlan: Continue current medications, normotensive pm current medications (5) Dyslipidemia Is this a current diagnosis for this admission?: YesPlan: Continue statin dose. Check fasting lipids in the am (6) Gout Qualifiers: Gout site: multiple sites Gout etiology: idiopathic Is this a current diagnosis for this admission?: NoPlan: Patient with history of gout will continue his allopurinol - Time Time Spent with patient: 25-34 minutes Critical Time spent with patient: 15-24 minutes Medications reviewed and adjusted accordingly: Yes Anticipated discharge: Home with Homehealth - Inpatient Certification Medical Necessity: Need For IV Fluids, Need For Continuous Telemetry Monitoring , Risk of Complication if Not Cared For in Hospital
[2016-06-22] MEDS: NORMAL SALINE 1000 ML 1,000 ML IV PRN (13:25)
[2016-06-22] MEDS ORDERED: HYDROMORPHONE HCL INJ/PF 2 MG/ML AMPULE IV PRN (18:07)
[2016-06-22] MEDS: DONEPEZIL HCL 5 MG TABLET PO SCH (21:43)
[2016-06-23] MEDS: NORMAL SALINE 1000 ML 1,000 ML IV PRN (02:43)
[2016-06-23 04:56] LABS: ABSOLUTE EOSINOPHILS # (AUTO) 0.2 10^3/uL (0.0-0.6); ABSOLUTE LYMPHOCYTES (AUTO) 1.8 10^3/uL (0.5-4.7); ABSOLUTE MONOCYTES (AUTO) 0.5 10^3/uL (0.1-1.4); ABSOLUTE NEUT (AUTO) 2.3 10^3/uL (1.7-8.2); BASOPHILS % (AUTO) 0.6 % (0-2); EOSINOPHILS % (AUTO) 4.6 % (0-6); HEMATOCRIT 38.5 % (37.9-51.0); HEMOGLOBIN 13.6 g/dL (13.5-17.0); HGB HCT DIFFERENCE 2.3; LYMPHOCYTES % (AUTO) 36.8 % (13-45); MEAN CORPUSCULAR HEMOGLOBIN 27.3 pg (27.0-33.4); MEAN CORPUSCULAR HGB CONC 35.4 g/dL (32.0-36.0); MEAN CORPUSCULAR VOLUME 77 fl (80-97); MONOCYTES % (AUTO) 10.9 % (3-13); RED CELL DISTRIBUTION WIDTH 14.9 % (11.5-14.0); SEGMENTED NEUTROPHILS % (AUTO) 47.1 % (42-78); WHITE BLOOD COUNT 4.9 10^3/uL (4.0-10.5)
[2016-06-23 05:16] LABS: ANION GAP 11 (5-19); BLOOD UREA NITROGEN 13 mg/dL (7-20); CALCIUM 9.1 mg/dL (8.4-10.2); CARBON DIOXIDE 20 mmol/L (22-30); CHLORIDE 110 mmol/L (98-107); CREATININE RESULT 0.98 mg/dL (0.52-1.25); GLUCOSE 85 mg/dL (75-110); SODIUM 141.1 mmol/L (137-145)
[2016-06-23] MEDS: HEPARIN SOD (PORCINE) 5,000 UNIT/ML 1 ML SYRINGE SUBCUT SCH (06:00)
[2016-06-23] MEDS ORDERED: PHENOL/SODIUM PHENOLATE 100 SPRAY/177 ML BOTTLE ONE (06:15)
[2016-06-23] MEDS ORDERED: PHENOL/SODIUM PHENOLATE 100 SPRAY/177 ML BOTTLE PO PRN (07:22)
--- NOTE | 2016-06-23 08:49 | ST Inp Modified Barium Swallow ---
Medical Diagnosis - Medical Diagnoses Medical Diagnosis Description & ICD-10 Code(s): dysphagia ST Inpatient [facility] [place] General Date: 06/23/16 Date of Onset: 06/21/16 - History History Obtained From: Patient - per EMR -: Medical - sore throat, CVA, dysphagia, difficulty speaking. KUB xray- negative. Head MRI shows small acute nonhemorrhagic left posterior frontal cortical infarct extensive white matter disease multiple old infarcts. PMHx: x4 cva's with residual left sided weakness, HLD, gout, memory loss. Medications: Medications Reviewed Allergies: Refer to medical record - Subjective Current Nutritional Means: NPO Current PO Diet: N/A (NPO) Current Symptoms: Coughing, c/o Globus sensation Pain: 0/5 - Objective Assessment: Upright - Food Trials Food Trials Used: Thin liquids, Pureed, Soft solids The Patient: Was Able to Self Feed - Assessment Labial Function: Within Functional Limits - reduced seal Lingual Function: Within Functional Limits Mandibular Function: Within Functional Limits Dentition: Edentulous Velo-Pharyngeal Function: Unremarkable Laryngeal Function: Volitional Cough, Volitional Swallow - Pharyngeal Stage Initiation of Pharyngeal Stage: Normal Decreased Laryngeal Elevation: No Reduced Velo-Pharyngeal Closure: no Reduced Pressure Generation: No Reduced Tongue Base Retraction: No Pre-Swallowing Pooling in Valleculae: None Pre-Swallowing Pooling in Pyriforms: None Reduced Thyro-Hyiod Approximation: No Reduced Epiglottic Excursion: No Reduced Pharyngeal Peristalsis: No Post Swallow Residuals in Valleculae: None Post Swallow Residuals in Pyriforms: Mild - on soft solids - Esophageal Stage Cricophageal Function: Impaired - reduced opening resulting in residuals of soft solids in pyriforms - Impression/Summary Laryngeal Penetration: No Tracheal Aspiration: no Patient Presents With: Pharyngeal stage dysph. - pharyngoesophageal dysphagia Risk of Aspiration: Minimal - Recommendations NPO: no Solid Diet Recommendations: Mechanical Soft Liquid Diet Recommendations: Thin Dysphagia Therapy with [facility]RAV[facility]OOFER: Yes, Inpatient, Discharge Recommended Techniques: Fully Upright During Meal, Alternate Bites/Sips Supervision: Independent Other Recommendations: 1) Recommend soft solids and thin liquids. 2) ST to treat x2 for dysphagia. ST to complete communication evaluation. 3) Recommend speech therapy after discharge. No penetration or aspiration observed. Mild residuals of soft solids observed in pyriforms likely due to decreased cricopharyngeal opening. Observed to cause cough response during study-pt observed to move expell residuals during cough. Alternating bites and sips observed to reduce residuals. ST spoke with MD regarding results and recommendations, MD in agreement with diet placement and provided ST with diet order. - Time Total Time: 20 Total Timed Minutes: 0 ST F.L. Impairment Category - Rationale Based On Rationale Based On: Clin Find., Obj Measures - Swallowing Current G8996: CI 1-19% Impaired Goal G8997: CI 1-19% Impaired Discharge G8998: None
[2016-06-23] MEDS: FAMOTIDINE INJ/PF 20 MG/2 ML SDV IV SCH ×2 (09:05→21:22)
[2016-06-23] MEDS: ASPIRIN 81 MG TABLET, ENT COATED PO SCH (11:01)
[2016-06-23] MEDS: GUAIFENESIN 600 MG TABLET.SA PO SCH ×2 (11:01→21:26)
[2016-06-23] MEDS: ATORVASTATIN CALCIUM 10 MG TABLET PO SCH (11:01)
[2016-06-23] MEDS: TAMSULOSIN HCL 0.4 MG CAP.SR.24H PO SCH (11:01)
[2016-06-23] MEDS: ATORVASTATIN CALCIUM 40 MG TABLET PO SCH (11:01)
[2016-06-23] MEDS: CLOPIDOGREL BISULFATE 75 MG TABLET PO SCH (11:01)
--- NOTE | 2016-06-23 12:12 | PDOC PROGRESS REPORT ---
Subjective Progress Note for:: 06/23/16 Subjective:: Patient seen on morning rounds. He is presently resting in bed. His is at bedside. He apparently did well with his swallow eval was able to tolerate soft foods and thickened liquids, but then began having more difficulty swallowing yesterday evening again. He was therefore made nothing by mouth. He continues to have dysarthria and some dysphasia. He has no new extremity weakness. He ordered a modified barium swallow and speech therapy evaluation. Also have physical therapy and occupational therapy evaluations today. He denies any pain. He denies any shortness of breath, cough or dyspnea. He denies any chest pain, palpitations or dizziness. Rest of review of systems are all negative. Physical Exam Vital Signs: Temp Pulse Resp BP Pulse Ox 97.3 F 65 24 H 140/70 H 99 06/23/16 07:25 06/23/16 07:25 06/23/16 07:25 06/23/16 07:25 06/23/16 07:25 Intake & Output 06/22/16 06/23/16 06/24/16 06:59 06:59 06:59 Intake Total 1312 2333 Output Total 150 0 Balance 1162 2333 Weight 95.3 kg 98.5 kg General appearance: PRESENT: no acute distress, well-developed, well-nourished Head exam: PRESENT: atraumatic, normocephalic Eye exam: PRESENT: conjunctiva pink, EOMI, PERRLA. ABSENT: scleral icterus Ear exam: PRESENT: normal external ear exam Mouth exam: PRESENT: moist, tongue midline Neck exam: ABSENT: carotid bruit, JVD, lymphadenopathy, thyromegaly Respiratory exam: PRESENT: clear to auscultation marifer. ABSENT: rales, rhonchi, wheezes Cardiovascular exam: PRESENT: RRR. ABSENT: diastolic murmur, rubs, systolic murmur Pulses: PRESENT: normal dorsalis pedis pul Vascular exam: PRESENT: normal capillary refill GI/Abdominal exam: PRESENT: normal bowel sounds, soft. ABSENT: distended, guarding, mass, organolmegaly, rebound, tenderness Rectal exam: PRESENT: deferred Extremities exam: PRESENT: full ROM. ABSENT: calf tenderness, clubbing, pedal edema Musculoskeletal exam: PRESENT: full ROM, normal inspection Neurological exam: PRESENT: alert, awake, oriented to person, oriented to place , oriented to time, oriented to situation, CN II-XII grossly intact. ABSENT: motor sensory deficit Psychiatric exam: PRESENT: appropriate affect, normal mood. ABSENT: homicidal ideation, suicidal ideation Skin exam: PRESENT: dry, intact, warm. ABSENT: cyanosis, rash Results Laboratory Results: 06/23/16 04:16 06/23/16 04:16 06/23/16 06/23/16 04:16 04:16 WBC 4.9 RBC 5.00 Hgb 13.6 Hct 38.5 MCV 77 L MCH 27.3 MCHC 35.4 RDW 14.9 H Plt Count 144 L Seg Neutrophils % 47.1 Lymphocytes % 36.8 Monocytes % 10.9 Eosinophils % 4.6 Basophils % 0.6 Absolute Neutrophils 2.3 Absolute Lymphocytes 1.8 Absolute Monocytes 0.5 Absolute Eosinophils 0.2 Absolute Basophils 0.0 Sodium 141.1 Potassium 4.0 Chloride 110 H Carbon Dioxide 20 L Anion Gap 11 BUN 13 Creatinine 0.98 Est GFR ( Amer) > 60 Est GFR (Non-Af Amer) > 60 Glucose 85 Calcium 9.1 Impressions: KUB X-Ray 06/21/16 00:00 IMPRESSION: NO RADIOGRAPHIC EVIDENCE FOR ACUTE ABDOMINAL DISEASE. Head MRI 06/21/16 08:53 IMPRESSION: Small acute nonhemorrhagic left posterior frontal cortical infarct Extensive white matter disease and multiple old infarcts as above Chest X-Ray 06/23/16 00:00 IMPRESSION: NO SIGNIFICANT RADIOGRAPHIC FINDING IN THE CHEST. Assessment & Plan - Diagnosis (1) Acute CVA (cerebrovascular accident) Is this a current diagnosis for this admission?: YesPlan: Patient with new left-sided facial droop and dysarthria. He just underwent modified barium swallow, and evaluation by speech therapy. He tolerated soft diet and thin liquids. He does have some esophageal narrowing noted. Patient underwent EGD on admission where there were no mentions of any narrowing or strictures. (2) Dysphagia Qualifiers: Dysphagia type: unspecified Qualified Code(s): R13.10 - Dysphagia, unspecified Is this a current diagnosis for this admission?: YesPlan: Continue speech therapy. He'll need speech therapy at home. He'll also need follow-up with GI for esophageal narrowing. (3) Old cerebrovascular accident (CVA) without late effect Is this a current diagnosis for this admission?: YesPlan: Patient with multiple prior cva's with left sided weakness. No prior history of dysphagia or dysphasia (4) Essential hypertension Is this a current diagnosis for this admission?: YesPlan: Continue current medications, normotensive pm current medications (5) Dyslipidemia Is this a current diagnosis for this admission?: YesPlan: Continue statin dose. Check fasting lipids in the am (6) Gout Qualifiers: Gout site: multiple sites Gout etiology: idiopathic Is this a current diagnosis for this admission?: NoPlan: Patient with history of gout will continue his allopurinol - Time Time Spent with patient: 25-34 minutes Critical Time spent with patient: 15-24 minutes Medications reviewed and adjusted accordingly: Yes Anticipated discharge: Home with Homehealth - Inpatient Certification Based on my medical assessment, after consideration of the patient's comorbidities, presenting symptoms, or acuity I expect that the services needed warrant INPATIENT care.: Yes I certify that my determination is in accordance with my understanding of Medicare's requirements for reasonable and necessary INPATIENT services [42 CFR 412.3e].: Yes
[2016-06-23] MEDS: LANSOPRAZOLE 30 MG TAB.RAP.DR PO SCH (17:31)
[2016-06-23] MEDS: DONEPEZIL HCL 5 MG TABLET PO SCH (21:26)
[2016-06-24] MEDS: LANSOPRAZOLE 30 MG TAB.RAP.DR PO SCH (06:39)
[2016-06-24] MEDS: ASPIRIN 81 MG TABLET, ENT COATED PO SCH (10:43)
[2016-06-24] MEDS: GUAIFENESIN 600 MG TABLET.SA PO SCH (10:43)
[2016-06-24] MEDS: CLOPIDOGREL BISULFATE 75 MG TABLET PO SCH (10:43)
[2016-06-24] MEDS: FAMOTIDINE INJ/PF 20 MG/2 ML SDV IV SCH (10:43)
[2016-06-24] MEDS: TAMSULOSIN HCL 0.4 MG CAP.SR.24H PO SCH (10:43)
[2016-06-24] MEDS: ATORVASTATIN CALCIUM 10 MG TABLET PO SCH (10:44)
[2016-06-24] MEDS: ATORVASTATIN CALCIUM 40 MG TABLET PO SCH (10:44)
[2016-06-24 12:57] VITALS: BP 131/74
--- NOTE | 2016-06-26 16:20 | PDOC DISCHARGE SUMMARY ---
General - Admit/Disc Date/PCP Admission Date/Primary Care Provider: 06/21/16 10:41 FANTA ONOFREBELLE Discharge Date: 06/24/16 - Discharge Diagnosis (1) Acute CVA (cerebrovascular accident) Is this a current diagnosis for this admission?: Yes (2) Dyslipidemia Is this a current diagnosis for this admission?: Yes (3) Dysphagia Is this a current diagnosis for this admission?: Yes (4) Essential hypertension Is this a current diagnosis for this admission?: Yes (5) Gout Is this a current diagnosis for this admission?: No (6) Old cerebrovascular accident (CVA) without late effect Is this a current diagnosis for this admission?: Yes - Additional Information Resuscitation Status: Full Code Discharge Diet: As Tolerated, Other (Comments) Discharge Activity: Supervised Activity Home Medications: Aspirin [Adult Low Dose Aspirin EC] 81 mg PO DAILY 06/21/16 Atorvastatin Calcium [Lipitor 40 mg Tablet] 40 mg PO DAILY 06/21/16 Clopidogrel Bisulfate [Plavix 75 mg Tablet] 75 mg PO DAILY 06/21/16 Donepezil HCl [Aricept] 10 mg PO DAILY 06/21/16 Tamsulosin HCl [Flomax 0.4 mg Cap.sr] 0.4 mg PO DAILY 06/21/16 History of Present Illness Patient complains of: Difficulty swallowing and speaking, throat pain History of Present Illness: AMBER STYLES is a 65 year old male who was brought to [facility]'s emergency room earlier this morning. He was having difficulty swallowing, pain in his throat and difficulty speaking. He has a past medical history of several prior CVAs, with mild left-sided weakness. He has no previous history of dysphasia or dysphagia. He was initially thought to have an impacted food bolus by the initial assessment of the first emergency room physician who saw him. Dr. Francis, performed an EGD, and found no impacted food bolus. Dr. Means, the day shift emergency physician, spoke to patient's regarding findings and his history. He then obtained MRI which showed a new small left posterior frontal cortical infarct. Patient is also having some dysphasia as well which is new for him. Hospital Course Hospital Course: The patient was admitted to [facility]. MRI findings were consistent with new CVA and evidence of multiple old CVAs. The patient's symptoms did improve however facial droop has remained the same. The patient was are be on aspirin Lipitor and Plavix therefore the stroke was sustained while all maximize therapy. The patient has been evaluated by speech therapy and recommendations have been made for diet. The patient was allowed permissive hypertension. Physical, speech, and occupational therapy were ordered. [employer] has arranged outpatient therapy. Physical Exam Vital Signs: Temp Pulse Resp BP Pulse Ox 98.4 F 76 19 131/74 H 99 06/24/16 12:56 06/24/16 12:56 06/24/16 12:56 06/24/16 12:56 06/24/16 12:56 Intake & Output 06/24/16 06/25/16 06/26/16 23:59 23:59 23:59 Intake Total 679 Balance 679 Weight 96.7 kg General appearance: PRESENT: no acute distress, well-developed, well-nourished Head exam: PRESENT: atraumatic, normocephalic Eye exam: PRESENT: conjunctiva pink, EOMI, PERRLA. ABSENT: scleral icterus Ear exam: PRESENT: normal external ear exam Mouth exam: PRESENT: moist, tongue midline Neck exam: ABSENT: carotid bruit, JVD, lymphadenopathy, thyromegaly Respiratory exam: PRESENT: clear to auscultation marifer. ABSENT: rales, rhonchi, wheezes Cardiovascular exam: PRESENT: RRR. ABSENT: diastolic murmur, rubs, systolic murmur Pulses: PRESENT: normal dorsalis pedis pul Vascular exam: PRESENT: normal capillary refill GI/Abdominal exam: PRESENT: normal bowel sounds, soft. ABSENT: distended, guarding, mass, organolmegaly, rebound, tenderness Rectal exam: PRESENT: deferred Extremities exam: PRESENT: full ROM. ABSENT: calf tenderness, clubbing, pedal edema Musculoskeletal exam: PRESENT: full ROM, normal inspection Neurological exam: PRESENT: alert, awake, oriented to person, oriented to place , oriented to time, oriented to situation, CN II-XII grossly intact. ABSENT: motor sensory deficit Psychiatric exam: PRESENT: appropriate affect, normal mood. ABSENT: homicidal ideation, suicidal ideation Skin exam: PRESENT: dry, intact, warm. ABSENT: cyanosis, rash Results Laboratory Results: Labs- Last Values WBC 4.9 10^3/uL (4.0-10.5) 06/23/16 04:16 RBC 5.00 10^6/uL (4.35-5.55) 06/23/16 04:16 Hgb 13.6 g/dL (13.5-17.0) 06/23/16 04:16 Hct 38.5 % (37.9-51.0) 06/23/16 04:16 MCV 77 fl (80-97) L 06/23/16 04:16 MCH 27.3 pg (27.0-33.4) 06/23/16 04:16 MCHC 35.4 g/dL (32.0-36.0) 06/23/16 04:16 RDW 14.9 % (11.5-14.0) H 06/23/16 04:16 Plt Count 144 10^3/uL (150-450) L 06/23/16 04:16 Seg Neutrophils % 47.1 % (42-78) 06/23/16 04:16 Lymphocytes % 36.8 % (13-45) 06/23/16 04:16 Monocytes % 10.9 % (3-13) 06/23/16 04:16 Eosinophils % 4.6 % (0-6) 06/23/16 04:16 Basophils % 0.6 % (0-2) 06/23/16 04:16 Absolute Neutrophils 2.3 10^3/uL (1.7-8.2) 06/23/16 04:16 Absolute Lymphocytes 1.8 10^3/uL (0.5-4.7) 06/23/16 04:16 Absolute Monocytes 0.5 10^3/uL (0.1-1.4) 06/23/16 04:16 Absolute Eosinophils 0.2 10^3/uL (0.0-0.6) 06/23/16 04:16 Absolute Basophils 0.0 10^3/uL (0.0-0.2) 06/23/16 04:16 PT 12.9 SEC (11.4-15.4) 06/21/16 09:05 INR 0.95 06/21/16 09:05 Sodium 141.1 mmol/L (137-145) 06/23/16 04:16 Potassium 4.0 mmol/L (3.6-5.0) 06/23/16 04:16 Chloride 110 mmol/L (98-107) H 06/23/16 04:16 Carbon Dioxide 20 mmol/L (22-30) L 06/23/16 04:16 Anion Gap 11 (5-19) 06/23/16 04:16 BUN 13 mg/dL (7-20) 06/23/16 04:16 Creatinine 0.98 mg/dL (0.52-1.25) 06/23/16 04:16 Est GFR ( Amer) > 60 (>60) 06/23/16 04:16 Est GFR (Non-Af Amer) > 60 (>60) 06/23/16 04:16 Glucose 85 mg/dL (75-110) 06/23/16 04:16 Calcium 9.1 mg/dL (8.4-10.2) 06/23/16 04:16 Total Bilirubin 1.5 mg/dL (0.2-1.3) H 06/22/16 04:47 Direct Bilirubin 0.3 mg/dL (0.0-0.4) 06/22/16 04:47 Indirect Bilirubin Not Reportable 06/22/16 04:47 Neonat Total Bilirubin Not Reportable 06/22/16 04:47 AST 15 U/L (17-59) L 06/22/16 04:47 ALT 27 U/L (21-72) 06/22/16 04:47 Alkaline Phosphatase 72 U/L (38-126) 06/22/16 04:47 Creatine Kinase 96 U/L (55-170) 06/21/16 09:05 CK-MB (CK-2) 0.51 ng/mL (<4.55) 06/21/16 09:05 Troponin I < 0.012 ng/mL 06/21/16 09:05 Total Protein 6.7 g/dL (6.3-8.2) 06/22/16 04:47 Albumin 3.7 g/dL (3.5-5.0) 06/22/16 04:47 Triglycerides 113 mg/dL (<150) 06/22/16 04:47 Cholesterol 221.67 mg/dL (0-200) H 06/22/16 04:47 LDL Cholesterol Direct 148 mg/dL (<100) H 06/22/16 04:47 VLDL Cholesterol 23.0 mg/dL (10-31) 06/22/16 04:47 HDL Cholesterol 37 mg/dL (>40) L 06/22/16 04:47 Urine Color YELLOW 06/21/16 10:22 Urine Appearance SLIGHTLY-CLOUDY 06/21/16 10:22 Urine pH 5.0 (5.0-9.0) 06/21/16 10:22 Ur Specific [place] 1.028 06/21/16 10:22 Urine Protein NEGATIVE mg/dL (NEGATIVE) 06/21/16 10:22 Urine Glucose (UA) NEGATIVE mg/dL (NEGATIVE) 06/21/16 10:22 Urine Ketones NEGATIVE mg/dL (NEGATIVE) 06/21/16 10:22 Urine Blood NEGATIVE (NEGATIVE) 06/21/16 10:22 Urine Nitrite NEGATIVE (NEGATIVE) 06/21/16 10:22 Urine Bilirubin NEGATIVE (NEGATIVE) 06/21/16 10:22 Urine Urobilinogen NEGATIVE mg/dL (<2.0) 06/21/16 10:22 Ur Leukocyte Esterase TRACE (NEGATIVE) H 06/21/16 10:22 Urine WBC (Auto) 6 /HPF 06/21/16 10:22 Urine RBC (Auto) 2 /HPF 06/21/16 10:22 Squamous Epi Cells Auto 2 /HPF 06/21/16 10:22 Urine Mucus (Auto) RARE /LPF 06/21/16 10:22 Urine Ascorbic Acid NEGATIVE (NEGATIVE) 06/21/16 10:22 Impressions: KUB X-Ray 06/21/16 00:00 IMPRESSION: NO RADIOGRAPHIC EVIDENCE FOR ACUTE ABDOMINAL DISEASE. Head MRI 06/21/16 08:53 IMPRESSION: Small acute nonhemorrhagic left posterior frontal cortical infarct Extensive white matter disease and multiple old infarcts as above Chest X-Ray 06/23/16 00:00 IMPRESSION: NO SIGNIFICANT RADIOGRAPHIC FINDING IN THE CHEST. Modified Barium Swallow 06/23/16 00:00 IMPRESSION: NO EVIDENCE OF PENETRATION OR ASPIRATION.PLEASE SEE SPEECH PATHOLOGIST REPORT FOR OTHER FINDINGS AND RECOMMENDATIONS. Qualifiers PATEINT BEING DISCHARGED WITH ANY OF THE FOLLOWING DIAGNOSIS?: Stroke Stroke Pt being discharged on Anti-thrombolytic therapy?: Yes Stroke Pt being discharged on Anti-coagulation therapy?: No Reason(s) for not prescribing Anti-coagulation therapy:: Not indicated Stroke Pt being discharged on Statins?: Yes Plan Discharge Plan: The patient is to followup with their primary care provider, Dr. Onofre, within one week for hospital followup regarding acute CVA. Time Spent: Less than 30 Minutes
== END 2016-06-24 13:15 | disposition home health service (06) | DRG 65 ==
LOC: ER 02:05 → EH 10:41 → UNDOADMIN 10:50 → EH 10:50 → 3S 12:29
PROVIDERS: ADMIT Family Medicine; ATTEND Family Medicine
PROC: 0DJ08ZZ Inspection of Upper Intestinal Tract, Via Natural or Artificial Opening Endoscopic (ICD-10-PCS; principal; 2016-06-21 08:00)
DX: I63.9 Cerebral infarction, unspecified (principal); I69.354 Hemiplegia and hemiparesis following cerebral infarction affecting left non-dominant side; R13.10 Dysphagia, unspecified; E78.5 Hyperlipidemia, unspecified; I10 Essential (primary) hypertension; M10.09 Idiopathic gout, multiple sites; R29.810 Facial weakness; K29.80 Duodenitis without bleeding; R47.1 Dysarthria and anarthria; E78.00 Pure hypercholesterolemia, unspecified; Z98.42 Cataract extraction status, left eye; Z98.41 Cataract extraction status, right eye; Z87.891 Personal history of nicotine dependence; Z88.0 Allergy status to penicillin; Z82.49 Family history of ischemic heart disease and other diseases of the circulatory system
CPT/HCPCS: 36415; 43235; 70551; 71010; 71020; 74000; 74230; 80048; 80053; 80061; 81001; 82550; 82553; 84484; 85025; 85610; 96374; 99285; G8978-GP; G8979-GP; G8987-GO; G8988-GO; G8996-GN; G8997-GN; J0171; J1170; J1610; J1644; J2250; J2310; J2405; J3010; J3490; J7030; S0028

== ENCOUNTER 2017-12-18 08:38 | Emergency (ER) | payer MEDICARE ==
[2017-12-18 08:50] LABS: PARTIAL THROMBOPLASTIN TIME 28.9 SEC (23.5-35.8)
[2017-12-18 08:52] LABS: ABSOLUTE EOSINOPHILS # (AUTO) 0.2 10^3/uL (0.0-0.6); ABSOLUTE LYMPHOCYTES (AUTO) 2.3 10^3/uL (0.5-4.7); ABSOLUTE MONOCYTES (AUTO) 0.6 10^3/uL (0.1-1.4); ABSOLUTE NEUT (AUTO) 2.4 10^3/uL (1.7-8.2); BASOPHILS % (AUTO) 0.5 % (0-2); EOSINOPHILS % (AUTO) 3.7 % (0-6); HEMATOCRIT 44.5 % (37.9-51.0); HEMOGLOBIN 15.2 g/dL (13.5-17.0); LYMPHOCYTES % (AUTO) 40.6 % (13-45); MEAN CORPUSCULAR HEMOGLOBIN 27.2 pg (27.0-33.4); MEAN CORPUSCULAR HGB CONC 34.3 g/dL (32.0-36.0); MEAN CORPUSCULAR VOLUME 79 fl (80-97); MONOCYTES % (AUTO) 11.2 % (3-13); PLATELET COUNT 182 10^3/uL (150-450); RED CELL DISTRIBUTION WIDTH 15.6 % (11.5-14.0); TOTAL CELLS COUNTED % (AUTO) 100 %; WHITE BLOOD COUNT 5.6 10^3/uL (4.0-10.5)
--- NOTE | 2017-12-18 09:01 | RADIOLOGY REPORT (SQ) ---
EXAM DESCRIPTION: CT HEAD WITHOUT COMPLETED DATE/TIME: 12/18/2017 8:45 am REASON FOR STUDY: stroke alert COMPARISON: MRI brain 06/21/2016 CT brain 03/30/2016 TECHNIQUE: Axial images acquired through the brain without intravenous contrast. Images reviewed wi th bone, brain and subdural windows. Additional sagittal and coronal reconstructions were generated. Images stored on PACS. All CT scanners at this facility use dose modulation, iterative reconstruction, and/or weight based d osing when appropriate to reduce radiation dose to as low as reasonably achievable (ALARA). [facility]: Dose Right [facility]: CareDose [facility]: Dose Right [facility]: Teradose 4D [facility]: [employer] RADIATION DOSE: CT Rad equipment meets quality standard of care and radiation dose reduction techniq ues were employed. CTDIvol: 53.2 mGy. DLP: 1070 mGy-cm. mGy. LIMITATIONS: None. FINDINGS: VENTRICLES: Normal size and contour. CEREBRUM: No CT evidence of acute large territory ischemic change, acute intracranial hemorrhage, mas s effect, or midline shift. There is extensive chronic ischemic change in the left posterior frontal cortex, right anterior frontal cortex, bifrontal and biparietal deep periventricular white matter, b ilateral basal ganglia and thalami, right and left occipital cortex and subcortical white matter. CEREBELLUM: Old infarcts in the right and left cerebellar hemispheres. No gross acute ischemic mcgill e. Moderate small vessel ischemic change in the tod. No posterior fossa mass effect or shift. EXTRAAXIAL SPACES: No fluid collections. No masses. ORBITS AND GLOBE: No intra- or extraconal masses. Normal contour of globe without masses. CALVARIUM: No fracture. PARANASAL SINUSES: No fluid or mucosal thickening. SOFT TISSUES: No mass or hematoma. OTHER: No other significant finding. IMPRESSION: No gross acute findings. Extensive chronic ischemic change throughout the brain as abov e EVIDENCE OF ACUTE STROKE: NO. COMMENT: Pertinent findings on the imaging study reported as a CRITICAL RESULT to ALEXIS RODAS MD at08:45 on 12/18/2017. Category of Critical Result: CT code stroke Quality ID # [id number]: Final reports with documentation of one or more dose reduction techniques (e.g., Au tomated exposure control, adjustment of the mA and/or kV according to patient size, use of iterative reconstruction technique) TECHNICAL DOCUMENTATION: JOB ID: [id number] [employer]- All Rights Reserved Reading location - IP/workstation name: [email or web address]
--- NOTE | 2017-12-18 09:05 | RADIOLOGY REPORT (SQ) ---
EXAM DESCRIPTION: CHEST SINGLE VIEW COMPLETED DATE/TIME: 12/18/2017 8:55 am REASON FOR STUDY: stroke alert COMPARISON: June 2016 EXAM PARAMETERS: NUMBER OF VIEWS: One view. TECHNIQUE: Single frontal radiographic view of the chest acquired. RADIATION DOSE: NA LIMITATIONS: None. FINDINGS: LUNGS AND PLEURA: No opacities, masses or pneumothorax. No pleural effusion. MEDIASTINUM AND HILAR STRUCTURES: No masses. Contour normal. HEART AND VASCULAR STRUCTURES: Heart normal in size. Normal vasculature. BONES: No acute findings. HARDWARE: Cardiac monitoring device is projected in the left lower hemithorax. OTHER: No other significant finding. IMPRESSION: NO ACUTE RADIOGRAPHIC FINDING IN THE CHEST. TECHNICAL DOCUMENTATION: JOB ID: [id number] [employer]- All Rights Reserved Reading location - IP/workstation name: [email or web address]
[2017-12-18 09:06] LABS: PROTHROMBIN TIME 12.6 SEC (11.4-15.4)
[2017-12-18 09:13] LABS: ALANINE AMINOTRANSFERASE 22 U/L (21-72); ALBUMIN 4.1 g/dL (3.5-5.0); ALKALINE PHOSPHATASE 98 U/L (38-126); ANION GAP 11 (5-19); ASPARTATE AMINO TRANSFERASE 15 U/L (17-59); BILIRUBIN,DIRECT 0.3 mg/dL (0.0-0.4); BILIRUBIN,TOTAL 0.8 mg/dL (0.2-1.3); BLOOD UREA NITROGEN 11 mg/dL (7-20); CALCIUM 9.6 mg/dL (8.4-10.2); CARBON DIOXIDE 24 mmol/L (22-30); CHLORIDE 109 mmol/L (98-107); CREATINE KINASE 84 U/L (55-170); GLUCOSE 120 mg/dL (75-110); POTASSIUM 3.7 mmol/L (3.6-5.0); TOTAL PROTEIN 7.5 g/dL (6.3-8.2)
--- NOTE | 2017-12-18 09:21 | EKG REPORT ---
SEVERITY:- BORDERLINE ECG - SINUS ARRHYTHMIA, RATE 68-93 BORDERLINE T ABNORMALITIES, INFERIOR LEADS : Confirmed by: Agueda Reddy MD 18-Dec-2017 09:19:59
[2017-12-18 09:25] LABS: CREATINE KINASE MB 0.6 ng/mL (<4.55); TROPONIN I 0.02 ng/mL
[2017-12-18] MEDS ORDERED: ALTEPLASE INJ 100 MG VIAL IV ONE (09:30)
--- NOTE | 2017-12-18 09:37 | ER Document Report ---
ED General - General Chief Complaint: S/S of Possible Stroke Stated Complaint: POSSIBLE STROKE Time Seen by Provider: 12/18/17 08:43 Mode of Arrival: Medic Information source: Relative, Emergency Med Personnel Notes: 67-year-old male brought to the emergency department by EMS for strokelike symptoms. Patient's states that they woke up and the patient was acting like his normal self. At 7 AM they were getting ready to go to the store when her was not responding to the questions she was asking. She went into the room to find out what was going on. Patient was unable to talk. He was also unable to ambulate. He was having left upper and lower extremity weakness. Patient has a history of CVA. He has had a total of 8 strokes in the past. He has residual right lower extremity weakness. Patient is currently on Plavix. The denies any trauma, injury, fall. denies any hemorrhagic strokes. She denies any recent surgeries. No recent [place]. TRAVEL OUTSIDE OF THE [place] IN LAST 30 DAYS: No - HPI Onset: Other - 7 am Onset/Duration: Sudden Quality of pain: No pain Associated symptoms: Weakness Exacerbated by: Denies Relieved by: Denies Similar symptoms previously: No Recently seen / treated by doctor: No - Related Data Allergies/Adverse Reactions: Penicillins Allergy (Verified 03/30/16 11:08) Past Medical History - General Information source: Relative - Social History Smoking Status: Unknown if Ever Smoked Family History: CAD, Hypertension Patient has suicidal ideation: No Patient has homicidal ideation: No - Past Medical History Cardiac Medical History: Reports: Hx Hypercholesterolemia Neurological Medical History: Reports: Hx Cerebrovascular Accident, Hx Seizures Renal/ Medical History: Denies: Hx Peritoneal Dialysis Musculoskeletal Medical History: Reports Hx Gout Past Surgical History: Reports: Other - cardiac event recorder insertion Review of Systems - Review of Systems -: Yes ROS unobtainable due to patient's medical condition Physical Exam - Vital signs Vitals: Resp Pulse Ox 17 95 12/18/17 08:48 12/18/17 08:48 - Notes Notes: PHYSICAL EXAMINATION: GENERAL: No acute distress. HEAD: Awake. Alert. EYES: Pupils equal round and reactive to light, R eye deviated to right, sclera anicteric, conjunctiva are normal. ENT: Nares patent, oropharynx clear without exudates. Moist mucous membranes. NECK: Normal range of motion, supple without lymphadenopathy LUNGS: Breath sounds clear to auscultation bilaterally and equal. No wheezes rales or rhonchi. HEART: Regular rate and rhythm without murmurs ABDOMEN: Soft, nontender, nondistended abdomen. No guarding, no rebound. No masses appreciated. Musculoskeletal: Normal range of motion, no pitting or edema. No cyanosis. NEUROLOGICAL: See NIH score. RLE weakness. LUE and LLE weakness. R eye gaze to the Right. Mute. PSYCH: Normal mood, normal affect. SKIN: Warm, Dry, normal turgor, no rashes or lesions noted. Course - Re-evaluation Re-evalutation: 12/18/17 09:41 EKG: Ventricular rate 77, para interval 160, QRS duration 88, QTc 440, sinus rhythm. 12/18/17 09:44 NIH stroke score of 28. NIH paperwork completed in the Room. TPA inclusion/ exclusion paperwork competed in the room. Patient and deny recent trauma, recent surgery, OH, history of hemorrhagic stroke, history of aneurysm. I discussed TPA with the and patient. Patient and initially declined TPA. wants patient transferred to [facility]. She says the patient's physician is located in [place]. I contacted the neurologist educational therapist, Dr. Turcios. He recommends TPA. I discussed TPA with the patient and his again. The daughter was on the phone. I told them that Dr. Turcios, the neurologist, was recommending the medication. I went over the risks and benefits again. The patient is requesting TPA today. says that the patient is alert and can make his decisions. I asked him to blink is eyes 3 times consecutively then nod his head if he understood the risks vs benefits. Patient was able to complete this task. I then asked him to do it again if he wanted the TPA. He did. I once again went over the risks. The patient nodded that he understood his condition may worsen by giving the medication. He would have bleeding in the brain or elsewhere in the body. I told the patient that he could as a result of the TPA as well. Patient nodded his head that he understood. TPA given. Patient was stable in the ED. Patient transferred to [facility]. Stable prior to transfer. 12/18/17 15:05 12/18/17 15:15 - Vital Signs Vital signs: Temp Pulse Resp BP Pulse Ox 97.6 F 75 24 H 149/79 H 93 12/18/17 09:44 12/18/17 09:50 12/18/17 09:50 12/18/17 09:50 12/18/17 09:50 - Laboratory Result Diagrams: 12/18/17 08:26 12/18/17 08:26 Laboratory results interpreted by me: 12/18/17 12/18/17 08:26 08:26 RBC 5.60 H MCV 79 L RDW 15.6 H Chloride 109 H Glucose 120 H AST 15 L Discharge - Discharge Clinical Impression: CVA (cerebral vascular accident) Qualifiers: CVA mechanism: unspecified Qualified Code(s): I63.9 - Cerebral infarction, unspecified Condition: Serious Disposition: [facility] Referrals: LUKE HANSEN MD [Primary Care Provider] - Follow up as needed
[2017-12-18 09:46] VITALS: BP 149/79
== END 2017-12-18 09:55 | disposition short-term general hospital (02) ==
LOC: ER 08:38
DX: I63.9 Cerebral infarction, unspecified (principal); G81.94 Hemiplegia, unspecified affecting left nondominant side; I69.341 Monoplegia of lower limb following cerebral infarction affecting right dominant side; Z79.02 Long term (current) use of antithrombotics/antiplatelets; Z88.0 Allergy status to penicillin
CPT/HCPCS: 93005; 99285; 96374; 36415; 82553; 82962; 82550; 85025; 85610; 85730; 80053; 84484; 71045; 70450; 93010; J2997